=== PATIENT | male | born 2000 | race Caucasian/White ===

== ENCOUNTER 2022-07-06 18:08 | Emergency (ER) | payer SELFPAY ==
--- NOTE | 2022-07-06 20:09 | PC.NURSE ---
first call 1934, no answer second call 1948, no answer
== END 2022-07-06 19:35 | disposition left against medical advice (07) ==
DX: Z53.21 Procedure and treatment not carried out due to patient leaving prior to being seen by health care provider (principal)
CPT/HCPCS: 99199

== ENCOUNTER 2022-09-04 04:17 | Emergency (ER) | payer MEDICAID, SELFPAY ==
[2022-09-04 04:21] VITALS: BP 137/83; PULSE 76; RESP 16; TEMP 36.2; O2SAT 99
--- NOTE | 2022-09-04 04:24 | ED.GENADULT ---
HPI - General Adult General Chief complaint: Dental/Oral Stated complaint: top left dental pain Time Seen by Provider: 09/04/22 04:20 History of Present Illness HPI narrative: Patient a 21-year-old gentleman who presents the emergency department with chief complaint of dental pain. Patient reports that for several weeks he has been having pain in his left upper teeth patient states there is no swelling but reports they are tender. Patient reports he has not seen a dentist reports that has had no fever denies trismus Related Data Allergies Allergy/AdvReac Type Severity Reaction Status Date / Time No Known Allergies Allergy Verified 09/04/22 04:17 Review of Systems Review of Systems: A 10 system review of systems was completed on the patient and is negative except for what is stated in the HPI. Nursing and ancillary documentation was reviewed. Exam Narrative: GENERAL: Well-appearing, well-nourished, and in no acute distress. HEAD: Normocephalic, atraumatic. EYES: PERRLA and EOMI. ENT: Nares clear, no rhinorrhea or epistaxis. Mucous membranes moist. There is tenderness to palpation in the upper teeth on the left side NECK: Supple. CHEST: Clear to auscultation. No respiratory distress. HEART: Regular rate and rhythm. No murmur heard. Normal peripheral pulses. ABDOMEN: Soft, nontender, nondistended, normal active bowel sounds. EXTREMITIES: Normal range of motion. No edema. SKIN: Warm, dry, no rash. NEURO: No focal deficits. Alert and oriented x3. PSYCH: Normal mood and affect. Course Vital Signs Vital signs: Vital Signs Temperature 36.2 C L 09/04/22 04:21 Pulse Rate 76 09/04/22 04:21 Respiratory Rate 16 09/04/22 04:21 Blood Pressure 137/83 09/04/22 04:21 Pulse Oximetry 99 09/04/22 04:21 Oxygen Delivery Room Air 09/04/22 04:21 Temperature 36.2 C L 09/04/22 04:21 Pulse Rate 76 09/04/22 04:21 Respiratory Rate 16 09/04/22 04:21 Blood Pressure 137/83 09/04/22 04:21 Pulse Oximetry 99 09/04/22 04:21 Oxygen Delivery Room Air 09/04/22 04:21 Medical Decision Making [facility] Narrative Medical decision making narrative: The patient is not showing any signs of acute airway compromise no evidence of drainable abscess. The patient will be started on amoxicillin and will be started on ibuprofen for home the patient be given an additional dose of [place] tonight to help with pain control before the antibiotics have had time to start working. The patient was instructed to follow-up with a dentist as soon as possible patient was instructed of when to return to the emergency department Vital Signs Vital Signs: Vital Signs Temperature 36.2 C L 09/04/22 04:21 Pulse Rate 76 09/04/22 04:21 Respiratory Rate 16 09/04/22 04:21 Blood Pressure 137/83 09/04/22 04:21 Pulse Oximetry 99 09/04/22 04:21 Oxygen Delivery Room Air 09/04/22 04:21 Temperature 36.2 C L 09/04/22 04:21 Pulse Rate 76 09/04/22 04:21 Respiratory Rate 16 09/04/22 04:21 Blood Pressure 137/83 09/04/22 04:21 Pulse Oximetry 99 09/04/22 04:21 Oxygen Delivery Room Air 09/04/22 04:21 Discharge Plan Discharge Clinical Impression: Dental abscess, Toothache, Dental caries Patient Disposition: Home, Self-Care Condition: Stable Instructions: Antibiotic Form, Dental Abscess (ED), Toothache (ED) Prescriptions: New amoxicillin 500 mg capsule 500 mg PO Q12H Qty: 20 0RF ibuprofen 800 mg tablet 800 mg PO TID PRN (Reason: pain) Qty: 30 0RF Follow-up/Referrals: Jamaica Hanson DO [Physician] - PHYSICIAN,CHART PICKER [Primary Care Provider] - Stand Alone Forms: Work/School Release IP Time of Disposition: 04:28
[2022-09-04] MEDS: HYDROcodone/acetaminophen (*CRX) 5-325 MG TABLET 1 TAB PO (04:32)
[2022-09-04] MEDS: AMOXICILLIN 500 MG CAPSULE PO (04:33)
[2022-09-04] MEDS: IBUPROFEN 400 MG TABLET 800 MG PO (04:33)
== END 2022-09-04 04:51 | disposition home or self-care (01) ==
PROVIDERS: Emergency Provider Emergency Medicine
DX: L02.91 Cutaneous abscess, unspecified (principal); K02.9 Dental caries, unspecified
CPT/HCPCS: 99283; A9270